=== PATIENT | male | born 1955 | race Caucasian/White ===

== ENCOUNTER 2024-09-07 07:55 | Inpatient (IN) | payer OTHER, SELFPAY ==
[2024-09-05 15:26] VITALS: BP 198/115
[2024-09-05 15:44] LABS: % Basophils 0.7 % (0-2); % Eosinophils 1.3 % (0-6); % Immature Granulocytes 0.3 % (0-0.5); % Monocytes 10.3 % (1.7-9.3); % Neutrophils 71.4 % (42.2-75.2); Absolute Basophils 0.1 10^3/uL (0-0.2); Absolute Eosinophils 0.1 10^3/uL (0-0.7); Absolute Lymphocytes 1.2 10^3/uL (1.2-3.4); Absolute Monocytes 0.8 10^3/uL (0.1-0.6); Absolute Neutrophils 5.4 10^3/uL (1.4-6.5); Hematocrit 46.9 % (39.0-52.0); Hemoglobin 15.7 g/dL (13.0-18.0); Mean Corp Hgb Conc. 33.5 g/dL (33.0-37.0); Mean Corpuscular Hgb 29.1 pg (27.0-31.0); Mean Platelet Volume 9.9 fL (7.4-10.4); Nucleated Red Blood Cells % 0 % (-); Platelet Count 314 10^3/uL (130-400); Red Blood Cell Count 5.39 10^6/uL (4.70-6.10); Red Cell Dist. Width 12.4 % (11.5-14.5); White Blood Cell Count 7.6 10^3/uL (4.8-10.8)
[2024-09-05 16:00] LABS: ALT (SGPT) 28 U/L (0-50); AST (SGOT) 25 U/L (17-59); Albumin 4.4 g/dl (3.5-5.0); Alkaline Phosphatase 77 U/L (38-126); Blood Urea Nitrogen 18 mg/dl (9-20); Calcium 9.4 mg/dl (8.4-10.2); Carbon Dioxide 24 mmol/L (22-30); Chloride 103 mmol/L (98-107); Glucose 309 mg/dl (70-99); Potassium 3.8 mmol/L (3.5-5.1); Sodium 140 mmol/L (135-145); Total Bilirubin 0.6 mg/dl (0.2-1.3); Total Protein 7.3 g/dl (6.3-8.2); eGFR > 60.00
[2024-09-05 16:12] LABS: Troponin I < 0.012 ng/ml
--- NOTE | 2024-09-05 17:57 | ED.GENMED ---
History of Present Illness
General
Chief Complaint: Chest Pain
Source: patient
Exam Limitations: none
Time Seen by Provider: 09/05/24 17:56
History of Present Illness
History of Present Illness:
69-year-old male intermittent episodes of upper chest pain. At times exertional. Worsening chest pain this afternoon. 2 episodes last week briefly. Noncompliant with medications.
Past History
Past History
ED Past Medical History: CAD, HTN, Hypercholesterolemia and Other (Has not been to a physician in 12 years. Unsure of his medical history. States he probably has a history of hypertension but is not treated or checked)
ED Past Surgical History: Appendectomy, Cardiac, Cholecystectomy and Orthopedic
Review of Systems
Review of Systems
All Other Systems: Not applicable
Constitutional: Denies fever
Respiratory: Reports no symptoms
Phy Exam
Physical Exam
Physical Exam:
GENERAL: Alert and oriented in no apparent distress
EYE: Orbits normal.
NECK: Supple, no significant adenopathy.
ENT: Pharynx without erythema
CARDIAC: Regular rate and rhythm without any obvious murmurs.
LUNGS: Clear breath sounds,normal
ABDOMEN: Soft, without focal tenderness or distention
NEUROLOGICAL: Alert and oriented , grossly non-focal
SKIN: Warm and dry, no rash or lesion, no discoloration, skin intact.
MUSCULOSKELETAL: No edema,no deformity.Good color
PSYCH: Normal and appropriate interaction.
Scores
Heart Score for Chest Pain Patients
STEMI patient?: No
History: Moderately Suspicious
ECG: Normal
Age: >/= 65 years
Risk Factors: 1 or 2 Risk Factors
Troponin: </= Normal Limit
Heart Score for Chest Pain Patients: 4
Heart Score Risk: 20.3% MACE over next 6 weeks
Course
Orders/Labs/Results
Orders:
Orders
09/05/24 Breakfast
2000 calorie (17 carb) Diabetic
At Your Request: Full Participation
Does patient need a safe tray?: No
Diabetic Diet: Cholesterol Lowering
09/05/24 15:02
Electrocardiogram (*1) Urgent
Reason for Study: Chest Pain
EKG- Treatment ONCE
09/05/24 15:36
Complete Blood Count/With Diff Urgent
Comprehensive Metabolic Panel Urgent
Troponin I Urgent
09/05/24 18:27
Cardiac Monitoring- Treatment ONCE
IV Insert/Care/Rem.- Treatment PRN
09/05/24 18:47
D-Dimer Urgent
PTT Urgent
09/05/24 20:14
Admit/Transfer Patient As Directed
Co-Sign Provider:
Level of Care: Observation services
Assign to:: Telemetry
Physician / Group: damien
Diagnosis: chest pain
Reason for Telemetry: Chest Pain syndromes
Date to Stop Telemetry: 09/07/24
Time to Stop Telemetry: 11:00
09/05/24 20:15
Code Status As Directed
Resuscitation Status: Full Code
PRN Pain Medication Management As Directed
May give lesser potent ordered pain med per pt: Yes
preference::
Protocol:: Medication orders for pain may be administered in a
manner that supports deferring to patient preference
when the pt is:
- Requesting an ordered lesser potent pain medication.
Least to most potent pain medications are defined
as: acetaminophen < NSAID < tramadol < opioids
(morphine, oxycodone, hydromorphone).
- Requesting a lesser dose of the same medication IF
ORDERED.
- Requesting a less intrusive route of administration
if both routes are prescribed by the provider (PO <
IV).
09/05/24 20:27
Insulin Glargine Lantus [Lantus] 10 units Subcutaneous Insulin Syringe [Syringe-Insulin] 0 unit SC ONCE
09/05/24 20:28
Complete Blood Count/No Diff Urgent
Comment: Obtain baseline before beginning heparin infusion if not already collected
Glycohemoglobin (HgbA1c) Routine
Heparin Protocol- PTT Orders As Directed
PTT per Heparin protocol: -Obtain CBC and baseline PTT - if not already collected.
-Obtain PTT 6 hours from start of infusion. Then, every 6 hours until 2 consecutive
PTT's are therapeutic. Then, PTT Daily.
-With each rate change, obtain PTT every 6 hours until 2 consecutive PTT's are
therapeutic. Then, PTT Daily.
Notify MD As Directed
Notify physician if: PTT is greater than or equal to 200.
09/05/24 20:30
Heparin 20767 Units/250 ml 25,000 units in 250 ml IV PER PROTOCOL
Weight to be used for heparin protocol in kilograms (kg):: 120
Protocol:: Cardiac Tx/Acute Coronary
PTT Goal Range to be used:: PTT 73 to 111 seconds
Order type:: Initial
INITIAL Infusion Dose (UNITS/KG/hr) & then follow protocol:: 12 units/kg/hr
Infusion Dose in UNITS/hr & then follow protocol (UNITS/hr):: 1,000
INFUSION RATE in mL/hr & then follow protocol (mL/hr):: 10
PTT less than or equal to 64 seconds:: Increase rate by 200 units/hr (+ 2 mL/hr)
PTT 64.1 to 72.9 seconds:: Increase rate by 100 units/hr (+ 1 mL/hr)
PTT 73 to 111 seconds:: Target Range. No change in rate.
PTT 111.1 to 130.9 seconds:: Decrease rate by 100 units/hr (- 1 mL/hr)
PTT 131 to 199.9 seconds:: HOLD for 1 hr. Then decrease rate by 200 units/hr (- 2 mL/hr)
PTT greater than or equal to 200 seconds:: HOLD for 2 hrs & Notify Provider. Then decrease by 200 units/hr (-
2 mL/hr)
Lab follow-up:: Each change, PTT q6h until 2 consecutive are therapeutic. Then PTT
daily.
09/05/24 20:32
Insulin Aspart [NOVOLOG vial] 4 units SC NOW STA
09/05/24 21:14
Electrocardiogram (*1) Q6H
Reason for Study: Chest Pain
Comment: at admission and Q3H for total of 3, to be done with each troponin
Troponin I Q3H
Comment: at admit & Q3H for 3 total including ED draws, obtain ECG with each level
Atorvastatin [Lipitor] 40 mg PO NOW STA
Dextrose 50%-Water [Dextrose 50% Syringe] 12.5 grams IV [id number] PRN
Glucagon [GlucaGen] 1 mg IM PRN PRN
09/05/24 21:14
CARDIOLOGY CONSULT Routine
Consulting Provider: Donny Macias
Was physician already notified: Yes
Activity As Directed
Activity Level: As Tolerated
Bedside Glucose Monitoring As Directed
Frequency: AC&HS
Additional Instructions:: Change to q6h if pt on TPN, tube feeding or not eating
INT (Intravenous Needle Therapy) As Directed
Comment: maintain peripheral IV access
Intake/ Output As Directed
Frequency: Per unit guidelines
Vital Signs As Directed
Frequency: q4h
Weight As Directed
Frequency: Daily
DX Deep Vein Thrombosis Video Routine
09/06/24 00:14
Troponin I Q3H
Comment: at admit & Q3H for 3 total including ED draws, obtain ECG with each level
09/06/24 03:14
Electrocardiogram (*1) Q6H
Reason for Study: Chest Pain
Comment: at admission and Q3H for total of 3, to be done with each troponin
Troponin I Q3H
Comment: at admit & Q3H for 3 total including ED draws, obtain ECG with each level
09/06/24 06:00
Cardiovascular Evaluation IN AM
Glycohemoglobin (HgbA1c) IN AM
09/06/24 07:30
Insulin Aspart Corrective Mod [Novolog Flexpen-Moderate Resistance] See Protocol SC AC
09/06/24 08:00
Aspirin Chewable [Low Strength Aspirin] 81 mg PO DAILY
09/06/24 09:14
Electrocardiogram (*1) Q6H
Reason for Study: Chest Pain
Comment: at admission and Q3H for total of 3, to be done with each troponin
09/06/24 18:00
Atorvastatin [Lipitor] 40 mg PO QPM
09/06/24 22:00
Insulin Glargine Lantus [Lantus] 10 units Subcutaneous Insulin Syringe [Syringe-Insulin] 0 unit SC HS
09/07/24 06:00
Complete Blood Count/No Diff Q2D
Comment: Notify MD if platelet count is <130,000 or decreases by 50% from baseline
09/07/24 11:00
DC Protocol for Telemetry ONCE
09/09/24 06:00
Complete Blood Count/No Diff Q2D
Comment: Notify MD if platelet count is <130,000 or decreases by 50% from baseline
09/11/24 06:00
Complete Blood Count/No Diff Q2D
Comment: Notify MD if platelet count is <130,000 or decreases by 50% from baseline
09/13/24 06:00
Complete Blood Count/No Diff Q2D
Comment: Notify MD if platelet count is <130,000 or decreases by 50% from baseline
09/15/24 06:00
Complete Blood Count/No Diff Q2D
Comment: Notify MD if platelet count is <130,000 or decreases by 50% from baseline
09/17/24 06:00
Complete Blood Count/No Diff Q2D
Comment: Notify MD if platelet count is <130,000 or decreases by 50% from baseline
09/19/24 06:00
Complete Blood Count/No Diff Q2D
Comment: Notify MD if platelet count is <130,000 or decreases by 50% from baseline
09/21/24 06:00
Complete Blood Count/No Diff Q2D
Comment: Notify MD if platelet count is <130,000 or decreases by 50% from baseline
Abnormal Lab Results
09/05/24
15:36
Absolute Monos (auto) 0.8 H 10^3/uL
(0.1-0.6)
Lymphocytes % 16.0 L %
(20.5-51.1)
Monocytes % 10.3 H %
(1.7-9.3)
Glucose 309 H mg/dl
(70-99)
09/05/24 15:36
Vital Signs
Initial and Last Documented VS:
Initial Vital Signs
Temp Pulse Resp BP Pulse Ox
98.5 F 99 18 198/115 98
09/05/24 15:26 09/05/24 15:26 09/05/24 15:26 09/05/24 15:26 09/05/24 15:26
Last Documented Vital Signs
Temp Pulse Resp BP Pulse Ox
98.5 F 80 20 151/83 94
09/05/24 15:26 09/05/24 20:00 09/05/24 20:00 09/05/24 20:00 09/05/24 20:00
MDM/Problems Addressed
Differential Diagnosis Includes:
Patient with intermittent chest pain at times exertional with nonspecific but new EKG changes. Warrants inpatient workup. Would also consider pulmonary emboli with mild tachycardia. Low suspicion clinically. Check D-dimer
*Pulse Oximetry
Patient hypoxic: no
*EKG
Interpreted by ED Provider?: Yes
Interpretation: abnormal
Comparison EKG: changes noted
Heart Rate: 108
Rate: tachycardiac
Rhythm: sinus
[place]: normal axis
Interval: normal interval
QRS Pattern: normal QRS
Ischemia: non-specific ST changes
*Critical Care Note
Total Time (30-74mins, 75-104mins- exclusive of procedures): Not Applicable
Data Reviewed
Review of Other/Old Records Reveals: Labs, Records and Testing
Update Note
Update Note:
69-year-old male with intermittent chest pain over the last 1-1/2 weeks. Today's episode after lunch was significantly worse. History of stent. Some exertional component at times
ED Attending Note
-
Portions of this chart may have been created with voice recognition software.� Occasional wrong word or��sound alike� substitutions may have occurred due to the inherent limitations of voice recognition software.
Discharge Plan
Departure
Patient Disposition: Admit
Date of Disposition: 09/05/24
Time of Disposition: 19:44
Presentation/result/management discussed w/ accepting MD/DO: Hospitalist
Discharge Problem:
Recurring chest pain, History of cardiac stent
Interventions
Interventions:
*Risk Screen - Suicide Last Done: 09/05/24 15:26
*General Assessment Last Done: 09/05/24 15:26
*Neglect/Abuse Screening Last Done: 09/05/24 15:26
*Nursing Disposition Last Done: 09/05/24 21:10
ED- Cardiac Assessment Last Done: 09/05/24 18:33
Discharge Date and Time
Discharge Date/Time: 09/05/24 21:10
[2024-09-05 18:27] VITALS: BMI 36.9
[2024-09-05 18:46] VITALS: BP 196/98
[2024-09-05 19:00] VITALS: BP 166/87
[2024-09-05 19:13] LABS: D-Dimer 0.29 ug/mlFEU (0.00-0.50)
--- NOTE | 2024-09-05 19:59 | HPS.HSE ---
Addendum entered and electronically signed by Patrick Del Toro DO 09/05/24 21:16:
Patient seen and examined independently. Agree with findings and plan as set forth by IGNACIO Oscar.
Patient is a 69y M with PMH significant for DM-II, hypertension and ASCVD s/p coronary stent in 2022 who presents to ED complaining of chest pain. Patient reports recent history of intermittent chest discomfort which typically occurs with
exertion and improves with rest. This evening, he developed chest discomfort shortly after dinner - while he was not exerting himself. He denies any associated nause, diaphoresis, dyspnea, etc. Patient admits that he has been non-compliant with
prescribed medications following his prior admission and coronary stent in 2022. He takes only ASA 81mg daily at present.
In the ED, patient is resting comfortably and is pain-free at this time.
His initial troponin is undetectable (as it was during his prior presentation); however, his EKG shows ST depressions in the later leads - again - similar to his prior presentation.
Ass:
Chest Pain / ACS
ASCVD
Benign Hypertension
DM-II, Uncontrolled
Medication Non-Compliance
Plan:
Observe overnight for further evaluation and treatment.
Continue ASA daily. Add IV heparin for now given risk factors / story.
Follow troponin to peak.
Follow for any new / recurrent chest pain.
Cardiology evaluation for additional recommendations / possible ischemic evaluation.
Restart statin, beta-blockade, etc.
Follow glucose and cover with SSI as needed. Start low dose basal insulin and titrate as needed.
Update A1C.
Original Note:
Family Physician
-
Family Physician: * NONE
Chief Complaint
-
left sided chest pain
History of Present Illness
69-year-old male with PMH for HTN, HLD, CAD, cardiac stents, type 2 Dm intermittent episodes of left sided chest pain multiples times last week. patient stated pain non radiating but exertional. pain resolved with rest. today pain was severe which
prompted him to come to the ER. patient is non compliance with medication. denied ESCOBAR, dizzy or syncope. denied fever, chills, sob. denied abdominal pain, n,v,d. denied dysuria or hematuria. he has chronic left LE edema since Tib/fib fracture.
trop negative. admitting for further management.
Medical History
Past Medical History
Past Medical History: Reports Other
Additional Past Medical History:
type 2 DM
HTN
CAD
HLD
Past Surgical History: Reports Other
Additional Past Surgical History:
cholecystectomy
appendectomy
left LE surgery
cardiac stents
Social History
Tobacco: Non-smoker
Alcohol: None
Drug: None
Personal: Single
Living: With Roomate
Family History
Family History: Not pertinent
Allergies / Home Medications
Allergies reflects when Allergies were last updated in [employer].
Home Medications with original date entered in [employer]
Allergy/Medication List:
Allergies
Allergy/AdvReac Type Severity Reaction Status Date / Time
No Known Allergies Allergy Verified 09/05/24 15:25
Home Medications
aspirin 81 mg chewable tablet 81 mg PO DAILY #0 tabs 02/20/23
atorvastatin 40 mg tablet 40 mg PO QPM #30 tabs 02/20/23
blood sugar diagnostic (Blood Glucose Test strips) #100 ea 02/20/23
blood-glucose meter (Blood Glucose Monitoring kit) #1 ea 02/20/23
empagliflozin 10 mg tablet (Jardiance) 10 mg PO DAILY #30 tabs 02/20/23
lancets (Lancets,Ultra Thin) #100 ea 02/20/23
metformin 500 mg tablet 500 mg PO BID@0800,1700 #60 tabs 02/20/23
metoprolol tartrate 25 mg tablet 25 mg PO BID #60 tabs 02/20/23
ticagrelor 90 mg tablet (Brilinta) 90 mg PO BID #60 tabs 02/20/23
Review of Systems
-
Constitutional: Reports No Symptoms
EENT: Reports No Symptoms
Respiratory: Reports No Symptoms
Cardiac: Reports Chest Pain
Abdomen/GI: Reports No Symptoms
: Reports No Symptoms
Musculoskeletal: Reports No Symptoms
Skin: Reports No Symptoms
Neurological: Reports No Symptoms
Endocrine: Reports No Symptoms
Hematologic/Lymphatic: Reports No Symptoms
Psych: Reports No Symptoms
Physical Exam
Vital Signs
Vital Signs
Temp Pulse Resp BP Pulse Ox
98.5 F 89 19 196/98 98
09/05/24 15:26 09/05/24 18:42 09/05/24 18:42 09/05/24 18:46 09/05/24 18:15
Physical Exam
General: Well Developed, Well Nourished and No Apparent Distress
HEENT: NormoCephalic, Moist mucous membranes and Atraumatic
Respiratory: Clear
Cardiac: S1/S2 and Regular Rhythm; No Murmur or Rub
GI: Soft, Non Tender, Non Distended and Normal Bowel Sounds; No Organomegaly
Rectal: Deferred by Provider
Musculoskeletal: No Clubbing, No Cyanosis and Other (left LE)
Skin: No Rash
Neuro: AO x 3 and Nonfocal/grossly intact
Psych: Calm
Laboratory Results
-
09/05/24 15:36
09/05/24 15:36
Laboratory Results
Total Bilirubin 0.6 mg/dl (0.2-1.3) 09/05/24 15:36
AST 25 U/L (17-59) 09/05/24 15:36
ALT 28 U/L (0-50) 09/05/24 15:36
Alkaline Phosphatase 77 U/L (38-126) 09/05/24 15:36
Troponin I < 0.012 ng/ml 09/05/24 15:36
Data Reviewed
-
Lab Data: Labs Reviewed by me
Impression/Plan
-
#chest pain r/o acute ACS
#hxt of cardiac stents
-trop 0.012
-continue to trend trop
-EKG With sinus tachy with ST and T wave abnormality
-asa continued
-statin
-initiated on heparin drip
-trend trop
-cardiology consulted
#type 2 DM with hyperglycemia
-blood sugar in 309
-sliding scale
-CHO diet
-Lantus 10units at hs
-4 units of aspart now
Essential hypertension
-hypertensive on arrival
-metoprolol added
#Hyperlipidemia
-statin continued
#DVT prophylaxis
-heparin drip
#CODE status
-full code
[2024-09-05 20:00] VITALS: BP 151/83
[2024-09-05 21:09] LABS: APTT 23.9 Sec (23.4-35.0)
[2024-09-05 21:38] VITALS: BMI 36.2
[2024-09-05] MEDS: HEPARIN 25000 UNITS/250 ML IV (23:49)
[2024-09-06] VITALS (7 sets, daily range): BP systolic 111–177; BP diastolic 72–101; BMI 35.7
--- NOTE | 2024-09-06 01:00 | PTCARENOTE ---
Pt arrived to unit ~ 2130, ambulated independently from stretcher to bed. AAOx3, no complaints of pain at this time. Unable to complete vitals or begin heparin gtt until 0100 d/t floors being cleaned and nursing staff being unable to reach
patient's room d/t floors being waxed. Pt oriented to room, call meyers within reach.
[2024-09-06 01:42] LABS: Glucose - Point of Care 178 mg/dl (70-99)
[2024-09-06] MEDS: LANTUS 0.1 UNITS SC ×2 (01:42→21:49)
[2024-09-06] MEDS: LIPITOR 40 MG PO ×2 (01:42→17:47)
[2024-09-06] MEDS: LOPRESSOR 25 MG PO ×3 (01:43→20:59)
[2024-09-06 01:46] LABS: Troponin I 0.638 ng/ml
--- NOTE | 2024-09-06 02:00 | PTCARENOTE ---
Troponin level increased from < 0.012 to 0.638. Asymptomatic, remains NSR on telemetry. EKG completed showing sinus rhythm with occasional PVCs, nonspecific ST and T wave abnormalities. MT Kerr notified, no new orders. Will pass along to
dayshift RN to notify cardiology of increased troponin level.
--- NOTE | 2024-09-06 04:30 | PTCARENOTE ---
Pt's repeat troponin increased from 0.638 to 1.020, asymptomatic. EKG reading NSR. UPHOLSTERY TECH made aware, no new orders. Next troponin due at 0600.
[2024-09-06 06:13] LABS: Hematocrit 44.5 % (39.0-52.0); Hemoglobin 14.8 g/dL (13.0-18.0); Mean Corp Hgb Conc. 33.3 g/dL (33.0-37.0); Mean Corpuscular Hgb 29.1 pg (27.0-31.0); Mean Corpuscular Volume 87.4 fL (80.0-94.0); Mean Platelet Volume 9.9 fL (7.4-10.4); Platelet Count 304 10^3/uL (130-400); Red Blood Cell Count 5.09 10^6/uL (4.70-6.10); Red Cell Dist. Width 12.4 % (11.5-14.5); White Blood Cell Count 7.4 10^3/uL (4.8-10.8)
[2024-09-06 06:18] LABS: APTT 32.4 Sec (23.4-35.0)
[2024-09-06 06:30] LABS: HDL Cholesterol 31 mg/dl; LDL Cholesterol, Calculated 88 mg/dl; Total Cholesterol 156 mg/dl (50-199); Triglyceride 186 mg/dl (10-149); Very Low Density Lipoprotein 37 mg/dl (0-30)
--- NOTE | 2024-09-06 07:04 | CON.CAR ---
Consultation
Consultation Request
Date/Time Consultation Requested: September 06, 2024
Date/Time Consultation Performed: September 06, 2024
Requesting Provider: [facility] Wallace
Performing Provider: Colleen
Reason for Consultation: Acute coronary syndrome
Medical History
-
Chief Complaint: Acute coronary syndrome
History of Present Illness:
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 He presents with left-sided exertional chest pressure better with rest rating to
his left shoulder which has been coming on for about a week and has been escalating. He had a 1 out of 10 chest pain when he had the ER with a troponin of less than 0.12 initially but then a peak of 1.02. Seen at the bedside he is currently
pain-free on heparin and aspirin. He carries a history of medical noncompliance as well as hypertension mixed hyperlipidemia and type 2 diabetes. He also has a history of hypertensive emergency in the past.
Past Medical History
Past Medical History: CAD and HTN
Social History
Tobacco: Former Smoker
Alcohol: Occasional
Drug: None
Personal: Other
Living: With Family
Employment: Employed
Family History
Family History: Reviewed & Not Pertinent
Allergies / Home Medications
Allergy/AdvReac Type Severity Reaction Status Date / Time
No Known Allergies Allergy Verified 09/05/24 15:25
�Medication �Instructions �Recorded �Confirmed �Type
aspirin 81 mg chewable tablet 81 mg PO DAILY #0 tabs 02/20/23 09/05/24 Rx
Review of Systems
-
All other systems: Negative unless noted
Respiratory: Trouble Breathing
Cardiac: Chest Pain
Physical Exam
Vital Signs
Temp Pulse Resp BP Pulse Ox
98.1 F 79 16 158/84 96
09/06/24 01:35 09/06/24 01:43 09/06/24 01:35 09/06/24 01:43 09/06/24 01:35
Lab Results
09/06/24 05:58
09/05/24 15:36
Troponin I 1.020 ng/ml H* D 09/06/24 03:35
Physical Exam
General: Well Developed and Well Nourished
HEENT: Normocephalic
Respiratory: Clear
Cardiac: S1/S2, Regular Rhythm and Murmur (No murmur)
Breast: Deferred by me
GI: Soft, Non Tender, Non Distended and Normal Bowel Sounds
Rectal: Deferred by Provider
Genito-urinary: No Costovertebral Tender
Musculoskeletal: No Clubbing, No Cyanosis and No Edema
Skin: Warm and Dry
Neuro: Awake, Alert and Oriented
Hematologic/Lymphatic: No Lymphadenopathy
Psych: Calm
Impression / Plan
-
Impression:
Chest Pain / ACS
History of OM1 stent 2022
ASCVD
Benign Hypertension
DM-II, Uncontrolled
Medication Non-Compliance
Recommend:
Agree with aspirin and IV heparin through the weekend.
Will plan left heart catheterization on Sunday, September [address] Valdez and keep n.p.o. after midnight
His character of angina is different from prior so it is possible he may have multivessel disease and will give aspirin only plus heparin
If he has further chest pain or pressure can add IV nitroglycerin will perform left heart catheterization sooner
Cardiovascular panel
Statin
Diabetes management as you are
Would be reasonable to give him beta-shira therapy for improved cardiac energetic's
Further testing pending catheterization on Sunday
Described left heart catheterization in detail including 1000 risk of and a 1% risk of vascular cardiac injury and the patient is amenable for procedure on Sunday
Maintain telemetry
Once troponin is trending down you can stop checking
We will follow with you
Data Reviewed
-
EKG: Tracing Personally Visualized and interpreted
Radiology: Report Reviewed by me
Labs: Labs Reviewed by me
Old Records: Reviewed
--- NOTE | 2024-09-06 07:13 | W.PN.HOSP.TC ---
Today's Communication/Plan
-
see a/p
Assessment / Plan
Assessment / Plan
Physical Exam
General: Obese, no acute distress, appears comfortable at this time
HEENT: NormoCephalic, Moist mucous membranes and Atraumatic
Respiratory: Clear
Cardiac: S1/S2 and Regular Rhythm; No Murmur or Rub
GI: Soft, Non Tender, Non Distended and Normal Bowel Sounds; No Organomegaly
Musculoskeletal: No Clubbing, No Cyanosis, No edema
Skin: No Rash
Neuro: AO x 3 conversant coherent
Psych: Calm
69M DM HTN HLD CAD stent 2022 here with chest pain troponin elevation concerning for ACS.
#chest pain r/o acute ACS
#hxt of cardiac stents
-trop 0.012
-continue to trend trop
-EKG With sinus tachy with ST and T wave abnormality
-asa continued
-statin
-hep gtt
-trend trop
-cardiology consult appreciated anticipate Cath Sunday
#type 2 DM with hyperglycemia
-A1c 10.4
-sliding scale
-CHO diet
-Lantus 10units at hs
-medium dose sliding scale
-monitor and titrate insulin regimen as necessary
Essential hypertension
-hypertensive on arrival
-metoprolol added, cont
#Hyperlipidemia
-statin continued
#DVT prophylaxis
-heparin drip
#CODE status
-full code
I spent a total of 50 minutes with the patient or on the floor. More than 50% of this time involved counseling and coordination of care.
Anticipated Discharge: > 48 hours
Subjective/Interval History
-
Date of Service: September 06, 2024
No acute distress, resting comfortably in bed. Reports feeling well. Denies current chest pain
Objective Data
-
Labs:
Laboratory Results
09/05/24 09/05/24 09/06/24
18:47 20:28 05:58
WBC 7.4
Hgb 14.8
Hct 44.5
Plt Count 304
APTT 23.9 Cancelled 32.4
09/06/24
13:00
WBC
Hgb
Hct
Plt Count
APTT Pending
Vital Signs:
Vital Signs
Temp Pulse Resp BP Pulse Ox
98.1 F 79 16 158/84 96
09/06/24 01:35 09/06/24 01:43 09/06/24 01:35 09/06/24 01:43 09/06/24 01:35
[2024-09-06] MEDS: NOVOLOG FLEXPEN-MODERATE RESISTANCE 1 UNITS SC ×2 (10:07→13:43)
[2024-09-06] MEDS: LOW STRENGTH ASPIRIN 81 MG PO (10:11)
[2024-09-06 10:35] LABS: Glycohemoglobin (HgbA1c) 10.4 % (4.0-5.6)
[2024-09-06 13:38] LABS: APTT 35.8 Sec (23.4-35.0)
--- NOTE | 2024-09-06 15:54 | CM ---
marketing support manager reviewed patient's chart and met with patient and patient lives with a friend in a one story home with 2 steps to enter, patient is independent with adl's and ambulation, no dme, patient does not have a PCP and case loader operator offered
patient information on Residency clinic but patient declined.
PCP: None
Pharmacy: [facility] in [place]
Plan; Home no needs when stable.
[2024-09-06 17:26] LABS: Glucose - Point of Care 204 mg/dl (70-99)
[2024-09-06] MEDS: NOVOLOG FLEXPEN-MODERATE RESISTANCE 3 UNITS SC (17:47)
[2024-09-06] MEDS: HEPARIN 25000 UNITS/250 ML IV (19:52)
[2024-09-06 20:54] LABS: APTT 29.4 Sec (23.4-35.0)
[2024-09-06 21:22] LABS: Glucose - Point of Care 158 mg/dl (70-99)
[2024-09-07 04:03] LABS: APTT 63.3 Sec (23.4-35.0)
[2024-09-07 04:07] VITALS: BP 142/85
[2024-09-07 06:00] VITALS: BMI 35.5
[2024-09-07 07:30] VITALS: BP 191/104
[2024-09-07 07:32] LABS: Glucose - Point of Care 186 mg/dl (70-99)
--- NOTE | 2024-09-07 07:54 | W.PN.HOSP.TC ---
Today's Communication/Plan
-
Blood pressure control
Npo after midnight for Cath
cont asa hep gtt
glycemic control
Assessment / Plan
Assessment / Plan
Physical Exam
General: Obese, no acute distress, appears comfortable at this time
HEENT: NormoCephalic, Moist mucous membranes and Atraumatic
Respiratory: Clear
Cardiac: S1/S2 and Regular Rhythm; No Murmur or Rub
GI: Soft, Non Tender, Non Distended and Normal Bowel Sounds; No Organomegaly
Musculoskeletal: No Clubbing, No Cyanosis, No edema
Skin: No Rash
Neuro: AO x 3 conversant coherent
Psych: Calm
69M DM HTN HLD CAD stent 2022, hasn't followed with primary care in a while, here with chest pain troponin elevation concerning for ACS.
#chest pain/ACS/NSTEMI
#hxt of cardiac stents
-trop trended to Peak 1.540
-EKG sinus tachy with ST and T wave abnormality
-asa continued
-statin
-hep gtt
-cardiology consult appreciated anticipate Cath Sunday, npo after midnight
Essential hypertension
-hypertensive on arrival
-BP regimen adjusted as per Cardio
-initial treated with metoprolol, since switched to Coreg
-Amlodipine started, cont
#type 2 DM with hyperglycemia
-A1c 10.4
-sliding scale
-CHO diet
-Lantus 10units at hs
-medium dose sliding scale
-monitor and titrate insulin regimen as necessary
#Hyperlipidemia
-statin continued
#DVT prophylaxis
-heparin drip
#CODE status
-full code
I spent a total of 50 minutes with the patient or on the floor. More than 50% of this time involved counseling and coordination of care.
Anticipated Discharge: 24 - 48 hours
Subjective/Interval History
-
Date of Service: September 07, 2024
No acute distress, sitting up comfortably in bed. Denies new acute issues at this time. Chest pain free.
Objective Data
-
Labs:
Laboratory Results
09/06/24 09/07/24 09/07/24
20:30 03:40 06:00
WBC Pending
Hgb Pending
Hct Pending
Plt Count Pending
APTT 29.4 63.3 H
Sodium Pending
Potassium Pending
Chloride Pending
Carbon Dioxide Pending
BUN Pending
Creatinine Pending
Glucose Pending
Calcium Pending
09/07/24
10:15
WBC
Hgb
Hct
Plt Count
APTT Pending
Sodium
Potassium
Chloride
Carbon Dioxide
BUN
Creatinine
Glucose
Calcium
Vital Signs:
Vital Signs
Temp Pulse Resp BP Pulse Ox
98.0 F 70 20 142/85 96
09/07/24 04:07 09/07/24 04:07 09/07/24 04:07 09/07/24 04:07 09/07/24 04:07
I&O
09/06/24 09/07/24 09/08/24
06:59 06:59 06:59
Intake Total 2571 / 257
Balance 2571 / 257
[2024-09-07] MEDS: NOVOLOG FLEXPEN-MODERATE RESISTANCE 1 UNITS SC ×2 (09:23→17:07)
[2024-09-07] MEDS: LOPRESSOR 25 MG PO (09:25)
[2024-09-07] MEDS: LOW STRENGTH ASPIRIN 81 MG PO (09:26)
[2024-09-07 10:32] LABS: Hemoglobin 15.5 g/dL (13.0-18.0); Mean Corp Hgb Conc. 33.7 g/dL (33.0-37.0); Mean Corpuscular Hgb 29.6 pg (27.0-31.0); Platelet Count 300 10^3/uL (130-400); Red Blood Cell Count 5.23 10^6/uL (4.70-6.10); Red Cell Dist. Width 12.3 % (11.5-14.5); White Blood Cell Count 6.7 10^3/uL (4.8-10.8)
[2024-09-07 10:38] LABS: APTT 81.6 Sec (23.4-35.0)
[2024-09-07 10:45] LABS: Troponin I 0.653 ng/ml
[2024-09-07 11:00] VITALS: BP 155/88
[2024-09-07 11:01] LABS: Blood Urea Nitrogen 12 mg/dl (9-20); Calcium 9.3 mg/dl (8.4-10.2); Carbon Dioxide 25 mmol/L (22-30); Chloride 104 mmol/L (98-107); Estimated Creatinine Clearance 113 ml/min; Glucose 186 mg/dl (70-99); Phosphorus 3.4 mg/dl (2.5-4.5); Potassium 4.3 mmol/L (3.5-5.1); Sodium 138 mmol/L (135-145); eGFR > 60.00
[2024-09-07 11:46] LABS: Glucose - Point of Care 244 mg/dl (70-99)
[2024-09-07] MEDS: NOVOLOG FLEXPEN-MODERATE RESISTANCE 3 UNITS SC (11:55)
[2024-09-07] MEDS: HEPARIN 25000 UNITS/250 ML IV (11:56)
--- NOTE | 2024-09-07 12:32 | W.PN.CARDCBS ---
Today's Communication / Plan
-
Plan for coronary angiography tomorrow
Continue IV heparin
Strive towards better blood pressure control
Will change Metoprolol tartrate 25 mg twice daily to Coreg 6.25 mg BID which should assist with better BP control
Will add Norvasc 2.5 mg daily
Will add Ntg Paste 1' TID
Reassess best strategy for blood pressure control once we have results of coronary angiography and echocardiogram
Impression / Plan
-
Impression:
Chest Pain / ACS
History of OM1 stent 2022
ASCVD
Benign Hypertension
DM-II, Uncontrolled
Medication Non-Compliance
Recommend:
Non-ST segment elevation myocardial infarction with troponin peak of 1.54 now declining and no further chest pain
aspirin and IV heparin through the weekend.
Left heart catheterization on Sunday, September [address] Valdez and keep n.p.o. after midnight
Atorvastatin 40 mg daily
Will change Metoprolol tartrate 25 mg twice daily to Coreg 6.25 mg BID which should assist with better BP control
Will add Norvasc 2.5 mg daily
Will add Ntg Paste 1' TID
Further testing pending catheterization on Sunday
Diabetes management as per primary service
Importantly, he tells me that he has not followed with a primary care physician for quite some time.
We had a long discussion that medical compliance/follow-up will be critically important for his health going forward.
There needs to be a focus on risk factor modification to include more aggressive management of diabetes mellitus. We discussed that weight loss and routine aerobic exercise is also an important component of risk factor modification and this will be
addressed in more detail during this hospital stay. He likely will benefit greatly from cardiac rehab.
Total time spent today was 54 minutes in preparing to see the patient, seeing the patient and coordination of care. This included review of recent laboratory evaluations, cardiact testing, imaging studies, primary care rtecords, specialty
consultations, hospital records, as well as personally interviewing and examining the patient, which included discussion of their tests, review/ordering medications, and communicating with other healthcare professionals and also treatment planning
as well as counseling.
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
Subjective
Date of Service: September 07, 2024
He tells me that he is feeling much better. He has had some intermittent low-level chest discomfort but has been pain-free for most of the day today, currently pain-free
Objective
Labs:
09/07/24 10:10
09/07/24 10:10
Labs
Hgb 15.5 g/dL (13.0-18.0) 09/07/24 10:10
Hct 46.0 % (39.0-52.0) 09/07/24 10:10
Plt Count 300 10^3/uL (130-400) 09/07/24 10:10
APTT 81.6 Sec (23.4-35.0) H 09/07/24 10:10
Sodium 138 mmol/L (135-145) 09/07/24 10:10
Potassium 4.3 mmol/L (3.5-5.1) 09/07/24 10:10
BUN 12 mg/dl (9-20) 09/07/24 10:10
Creatinine 0.8 mg/dL (0.7-1.3) 09/07/24 10:10
Glucose 186 mg/dl (70-99) H 09/07/24 10:10
Troponins
09/05/24 09/05/24 09/06/24
15:36 21:14 00:43
Troponin I < 0.012 Cancelled 0.638 H*
09/06/24 09/06/24 09/06/24
03:35 05:58 13:15
Troponin I 1.020 H* D 1.380 H* D 1.540 H*
09/07/24
10:10
Troponin I 0.653 H*
Vital Signs and I&O:
Vital Signs
Temp Pulse Resp BP Pulse Ox
97.7 F 70 18 191/104 95
09/07/24 07:30 09/07/24 07:30 09/07/24 07:30 09/07/24 07:30 09/07/24 07:30
Vital Signs
Temp Pulse Resp BP Pulse Ox
97.7 F 70 18 191/104 95
09/07/24 07:30 09/07/24 07:30 09/07/24 07:30 09/07/24 07:30 09/07/24 07:30
Intake & Output
09/05/24 09/06/24 09/07/24 09/08/24
06:59 06:59 06:59 06:59
Intake Total 2571 / 2571
Balance 2571 / 2571
Physical Exam
Physical Exam
Well-appearing, resting in bed no acute distress
Regular rate and rhythm normal S1 and S2, no S3 no S4 is grade 1/6 apical systolic murmur no rubs
Lungs clear to auscultation bilaterally without wheezes rales or rhonchi
Abdomen obese soft nontender nondistended normoactive bowel sounds
Extremities no clubbing cyanosis or edema
[2024-09-07 12:42] VITALS: BP 155/88
[2024-09-07 15:00] VITALS: BP 178/105
--- NOTE | 2024-09-07 16:29 | PTCARENOTE ---
BP 178/105- , hospitalist notified. No c/o chest pain , or any other symptoms.
[2024-09-07 17:04] LABS: Glucose - Point of Care 186 mg/dl (70-99)
[2024-09-07] MEDS: NORVASC 2.5 MG PO (17:07)
[2024-09-07] MEDS: COREG 6.25 MG PO ×2 (17:07→21:05)
[2024-09-07] MEDS: LIPITOR 40 MG PO (17:09)
[2024-09-07 18:19] LABS: INR 0.99; PT 13.4 Sec (11.4-14.6)
[2024-09-07 18:20] LABS: APTT 64.4 Sec (23.4-35.0)
[2024-09-07 19:55] VITALS: BP 147/86
[2024-09-07 21:41] LABS: Glucose - Point of Care 181 mg/dl (70-99)
[2024-09-07] MEDS: LANTUS 0.1 UNITS SC (21:46)
[2024-09-08] VITALS (15 sets, daily range): BP systolic 129–159; BP diastolic 73–97; BMI 35.5
[2024-09-08] MEDS: HEPARIN 25000 UNITS/250 ML IV (00:36)
[2024-09-08 01:48] LABS: APTT 99.2 Sec (23.4-35.0)
[2024-09-08 06:08] LABS: Glucose - Point of Care 166 mg/dl (70-99)
[2024-09-08] MEDS: NOVOLOG FLEXPEN-MODERATE RESISTANCE 1 UNITS SC (06:15)
[2024-09-08] MEDS: LOW STRENGTH ASPIRIN 81 MG PO (08:13)
[2024-09-08] MEDS: NORVASC 2.5 MG PO (08:13)
[2024-09-08] MEDS: COREG 6.25 MG PO ×2 (08:13→19:46)
[2024-09-08 08:38] LABS: Hematocrit 45.7 % (39.0-52.0); Hemoglobin 15.4 g/dL (13.0-18.0); Mean Corp Hgb Conc. 33.7 g/dL (33.0-37.0); Mean Corpuscular Hgb 29.4 pg (27.0-31.0); Mean Corpuscular Volume 87.2 fL (80.0-94.0); Mean Platelet Volume 9.9 fL (7.4-10.4); Platelet Count 290 10^3/uL (130-400); Red Blood Cell Count 5.24 10^6/uL (4.70-6.10); Red Cell Dist. Width 12.3 % (11.5-14.5); White Blood Cell Count 6.7 10^3/uL (4.8-10.8)
[2024-09-08 08:54] LABS: APTT 86.8 Sec (23.4-35.0)
[2024-09-08 09:24] LABS: Blood Urea Nitrogen 12 mg/dl (9-20); Calcium 9.2 mg/dl (8.4-10.2); Carbon Dioxide 24 mmol/L (22-30); Chloride 104 mmol/L (98-107); Estimated Creatinine Clearance 100 ml/min; Glucose 195 mg/dl (70-99); Phosphorus 3.9 mg/dl (2.5-4.5); Potassium 4.2 mmol/L (3.5-5.1); Sodium 138 mmol/L (135-145); eGFR > 60.00
[2024-09-08 10:15] LABS: ACT-LR - POC 295 Seconds (116-155)
--- NOTE | 2024-09-08 11:01 | ITS.CL.CATH ---
Facility Maintenance Manager - Catheterization
Cardiac Catheterization
Procedure Report:
LEFT HEART CATH AND CORONARY INTERVENTION
Date of Procedure: September 08, 2024
Referring: Dr. Donny Macias
PROCEDURES:
1. Left heart catheterization with coronary and single-plane left ventriculography
2. Hemodynamic assessment of the mid LAD using a Ganado Omni wire. The iFR in the mid LAD serially measured above the ischemic threshold and 0.92, 0.93, 0.93
3. Successful stenting of the mid to distal circumflex into the mid PDA with placement of overlapping 3.0 x 30 mm, 2.25 x 22 mm and 2.25 x 38 mm [place] stents that were implanted and postdilated distally with a 2.25 x 20 mm Euphora balloon at 12 hector
on the distal edge of the stents and 24 hector throughout the PDA back into the distal circumflex. The distal circumflex stent was postdilated with a 3.0 mm noncompliant balloon after IVUS. The most proximal portion of the stents were postdilated
with a 3.5 mm noncompliant balloon to 25 hector.
4. Intravascular ultrasound
INDICATION: This is a 69-year-old gentleman with a prior history of coronary artery disease and stenting of the proximal obtuse marginal branch in February 2023. He presented with recurring anginal symptoms. He was last seen by Dr. Sage in our
office in 2019. He has been marginally compliant with medications at time and his diabetes is under poor control with a hemoglobin A1c above 10%. He now presents for evaluation of substernal chest pressure and ruled in for non-ST segment elevation
myocardial infarction. He is referred for coronary angiography
ACCESS: Right common femoral artery, 6 [place] sheath using ultrasound guidance and micropuncture. The right radial artery has a draumatic loop in the forearm. The vascular loop could not be traversed with a baby J hydrophilic wire.
HEMODYNAMICS (mmHg):
AO (s/d, m) : 116/71, 90
LV (s/d) : 124/14
LVEDP : 27
CORONARY FINDINGS
Dominance: Right
LEFT MAIN: Normal
LEFT ANTERIOR DESCENDING: The LAD arises normally from the left main and has a 30% proximal stenosis and 50% stenosis in the mid LAD beyond the only sizable diagonal branch. The remainder of the vessel has only minor irregularities.
CIRCUMFLEX: The circumflex is a very large caliber dominant vessel. There is a stent in the proximal OM1 which remains widely patent. OM1 bifurcates into a larger and smaller daughter branch beyond the stented segment. Both daughter branches are
patent. The circumflex continues in the AV groove as a large-caliber vessel and is noted to have a 95% hazy stenosis involving the origin of a small distal RV marginal branch. The PDA is found to have multisegment high-grade atherosclerosis with a
95% proximal stenosis and diffuse 90% stenosis in the mid vessel.
RIGHT CORONARY: Small caliber nondominant vessel
VENTRICULOGRAPHY: Left ventriculography is performed in an AYALA projection. The digital single-plane left ventricular ejection fraction is visually estimated at 45% with posterior basal hypokinesis
HEMODYNAMIC ASSESSMENT OF THE LAD WITH A SilistixO OMNI WIRE: The origin of the LAD was cannulated with a 6 Fr XB 3.5 guide catheter. Intravenous heparin was administered and the ACT was followed during the procedure. Two hundred micrograms of
intracoronary nitroglycerin was given through the guide catheter. A [place] Omni wire was advanced to the guide catheter tip and normalized to guide catheter pressure. The Omni wire was then carefully manipulated across the stenosis in the mid LAD
and the tip of the wire was placed in the distal LAD. The IFR serially measured above the ischemic threshold at 0.92, 0.93, and 0.93 with a Pd/Pa at the guide catheter tip confirming no baseline drift measuring 1.0.
ANGIOPLASTY PROCEDURE DETAIL: At this point the decision was made to proceed with percutaneous revascularization of the extensive atherosclerotic disease in the distal circumflex extending into the mid PDA. The PDA becomes small and quite tortuous.
A 180 mg loading dose of ticagrelor was given at the beginning of the interventional procedure. Intravenous heparin was administered and the ACT proved difficult to advance above 300 seconds. A total of 16,000 units of heparin was administered
throughout the procedure. The ACT was carefully monitored throughout.
A BMW guidewire was advanced into the distal PDA and balloon predilation of the PDA back to the distal circumflex was performed using a 2.0 mm Euphora balloon. A 2.25 x 38 mm [place] stent was advanced to the distal mid PDA and was positioned with
angiographic and fluoroscopic guidance. The [place] stent was implanted at nominal pressures. A second 2.25 x 22 mm [place] stent was positioned in an overlapping fashion and implanted in the distal circumflex extending to the proximal PDA at nominal
pressures. Finally, a 3.0 x 30 mm [place] stent was positioned in an overlapping fashion from the mid circumflex to the distal circumflex. The distal stented segment was postdilated with a 2.25 mm noncompliant balloon at nominal pressures at the
distal edge of the stent and 24 hector throughout the mid and proximal PDA extending into the distal circumflex. The distal circumflex stent was postdilated at low pressures with a 3.5 x 15 mm noncompliant balloon between 10 to 14 hector. The mid to
distal portion of the circumflex stent was post dilated with a 3.5 mm NC balloon at 20 and as high as 25 hector in the proximal to midportion of the most proximal stent. Intravascular ultrasound was then performed. The distal circumflex and proximal
PDA stents were mildly undersized and were re-dilated with a 3.0 mm noncompliant balloon at 12 hector distally and 20-25 hector into the distal circumflex. The most proximal stent appeared reasonably well-approximated and appropriately sized following
post dilation with a 3.5 mm noncompliant balloon to 25 hector
SEDATION: 85 minutes of procedural sedation was utilized. An independent medical laboratory assistant was present to assist with and help manage the patient's level of consciousness and physiologic status
RADIATION SUMMARY: Fluoro Time (min): 18.7, Dose (mGy): 1315, DAP (Gy.cm2) : 94.6
CONCLUSIONS
1. Successful stenting of the mid to distal dominant circumflex into the mid PDA with overlapping 3.0 x 30 mm, 2.25 x 22 mm and 2.25 x 38 mm [place] stents. The distal stents were postdilated to high pressures with a 2.25 mm noncompliant balloon.
The distal LCx and proximal PDA were postdilated with a 3.0 mm noncompliant balloon to high pressures while the mid to distal circumflex stent was postdilated with a 3.5 mm noncompliant balloon proximally at 20 to 25 hector and distally at 14 to 16 hector
with a nice angiographic result
2. Patent stent in the proximal segment of OM1
3. Low normal LVEF estimated at 45%
RECOMMENDATIONS
1. Uninterrupted dual antiplatelet therapy for 1 year. The patient has been horribly compliant with medical therapy. He even stated that his compliance with aspirin has been marginal at times. I stressed the need to maintain dual antiplatelet
therapy. We will check the cost of ticagrelor. If prohibitively expensive may consider either prasugrel or clopidogrel.f
2. Diabetes is poorly controlled. Will consult diabetic nurse educator and work on better glycemic control
3. High intensity statin therapy
4. Begin RIKA/ARB given diabetes and continue carvedilol
Copy to: Dr. Long Sage
--- NOTE | 2024-09-08 11:23 | PN.DE.MGMTRT ---
Insulin Management
- -
09/08/2024: Diabetes Management Consult:
69 year old male with PMH: CAD, HTN, HLD, T2DM p/w chest pain. Pt well known to me from previous admission in 2022 of similar presentation. He presented with Chest Pain / ACS--> NSTEMI. He is s/p LHC and stent placement today.
Pt states he stopped taking all his diabetes medications a few weeks after he was discharged from the hospital in 2022. He also reports that he never got the [facility] glucose monitor he had planned to get and did not monitor his blood sugars after
discharge from the hospital like he had been instructed to do. He does not follow or adhere to a diabetic diet, and dose not exercise either. He has not seen his PCP in over a year. A1C on admission was 10.4% had been 8.5% in 02/2023. Cr 0.7, eGFR
>60.
Pt awake, alert, oriented, resting flat in bed post LHC and stenting, offers no complaints, able to discuss diabetes care plan.
Current diabetes regimen includes: Lantus 10 units @ HS and low corrective insulin.
He is noted for persistent Hyperglycemia. HS blood sugar was 191, FBG 195 V, 166 POC. 5/ premeal range 134 to 144.
Will increase Lantus to 15 units @ HS. Start AC NovoLog 5 units and Farxiga 10mg daily, 1st dose in AM. Cont low corrective insulin with meals.
He has been started on low chol diet, will modify to 1800 [address]anning. Emphasized importance of adherence to diabetes care, including intensive life style change and risk factor modification. Discussed OP DSME Classes and encouraged pt to call office and
enroll once discharged from the hospital. Will cont to follow.
Pt will be seen by the Diabetes RN Educator to provide Glucose monitor and insulin instructions.
Diabetes History
- -
Type of Diabetes: 2 requiring insulin
Pre-Admission Diabetes Regimen
09/08/24
08:20
Creatinine 0.9
Lab Results
Hemoglobin A1c 10.4 % (4.0-5.6) H 09/06/24 05:58
Insulin Pump Settings
IP Diabetes Regimen
09/07/24 09/07/24 09/07/24
11:40 16:52 21:38
Glucose
POC Glucose 244 H 186 H 181 H
09/08/24 09/08/24
06:06 08:20
Glucose 195 H
POC Glucose 166 H
Meal type: Breakfast
Amount consumed: 65%
Patient Education
--- NOTE | 2024-09-08 12:13 | CM ---
Pricing on Brilinta 90 mg BID through the patient's [employer] Prescription Plan [id number], is covered at $47. Patient is agreeable.
[2024-09-08] MEDS: COZAAR 50 MG PO (12:28)
[2024-09-08 13:05] LABS: ACT-LR - POC 314 Seconds (116-155)
[2024-09-08 13:05] LABS: ACT-LR - POC 192 Seconds (116-155)
[2024-09-08 13:05] LABS: ACT-LR - POC 256 Seconds (116-155)
[2024-09-08 13:05] LABS: ACT-LR - POC 261 Seconds (116-155)
[2024-09-08 13:05] LABS: ACT-LR - POC 287 Seconds (116-155)
[2024-09-08 13:05] LABS: ACT-LR - POC 327 Seconds (116-155)
[2024-09-08] MEDS: NOVOLOG FLEXPEN 5 UNITS SC (15:23)
--- NOTE | 2024-09-08 17:08 | PTCARENOTE ---
pt is sr on the monitor, hr in the 70s, vss. pt offers no complaints at this time. right radial site is cdi. right groin is tender to palpation, but dressing cdi. pt oob to br and tolerated well. pt educated on plan of care and pt verbalized
understanding of plan.
--- NOTE | 2024-09-08 17:19 | W.PN.HOSP.TC ---
Today's Communication/Plan
-
Assessment / Plan
Assessment / Plan
Physical Exam
General: Obese, no acute distress, appears comfortable at this time
HEENT: NormoCephalic, Moist mucous membranes and Atraumatic
Respiratory: Clear
Cardiac: S1/S2 and Regular Rhythm; No Murmur or Rub
GI: Soft, Non Tender, Non Distended and Normal Bowel Sounds; No Organomegaly
Musculoskeletal: No Clubbing, No Cyanosis, No edema
Skin: No Rash, right radial vascular access pressure dressing in place
Neuro: AO x 3 conversant coherent
Psych: Calm and cooperative
69M DM HTN HLD CAD stent 2022, hasn't followed with primary care in a while, here with chest pain troponin elevation concerning for ACS.
#chest pain/ACS/NSTEMI
#hxt of cardiac stents
- Status post PCI with 3 stents to left circumflex today 09/08
- Continue DAPT for at least 12 months
- High intensity statin therapy
- Blood pressure and blood glucose control
Essential hypertension
-hypertensive on arrival
-BP regimen adjusted as per Cardio
-initial treated with metoprolol, since switched to Coreg
-Amlodipine started, will switch to losartan
#type 2 DM with hyperglycemia
-A1c 10.4
-sliding scale
-CHO diet
-Lantus 10units at hs, increase to 15 units at night, added 5 units of short acting insulin with meals
-medium dose sliding scale
-monitor and titrate insulin regimen as necessary
- Appreciate diabetic COMFORT ADVISOR input
#Hyperlipidemia
-statin continued
#DVT prophylaxis
- Lovenox
#CODE status
-full code
I spent a total of 45 minutes
Anticipated Discharge: 24 - 48 hours
Subjective/Interval History
-
Date of Service: September 08, 2024
Patient was seen and examined at bedside this morning. Plan for left heart catheterization earlier this morning with PCI and tolerated procedure well.
Objective Data
-
Labs:
Laboratory Results
09/08/24
08:20
WBC 6.7
Hgb 15.4
Hct 45.7
Plt Count 290
APTT 86.8 H
Sodium 138
Potassium 4.2
Chloride 104
Carbon Dioxide 24
BUN 12
Creatinine 0.9
Glucose 195 H
Calcium 9.2
Vital Signs:
Vital Signs
Temp Pulse Resp BP Pulse Ox
98.3 F 76 20 150/88 98
09/08/24 15:29 09/08/24 12:28 09/08/24 15:29 09/08/24 12:28 09/08/24 15:29
I&O
09/07/24 09/08/24 09/09/24
06:59 06:59 06:59
Intake Total 2571 / 2571 600 / 1080 960 / 960
Balance 2571 / 2571 600 / 1080 960 / 960
Review of Systems
-
History Source: Patient
All other systems: Reviewed and negative
Physical Exam
-
General: No Apparent Distress
[2024-09-08] MEDS: LIPITOR 80 MG PO (17:23)
[2024-09-08 19:44] LABS: Glucose - Point of Care 131 mg/dl (70-99)
[2024-09-08] MEDS: NOVOLOG FLEXPEN SC (19:45)
[2024-09-08] MEDS: NOVOLOG FLEXPEN-MODERATE RESISTANCE SC (19:45)
[2024-09-08] MEDS: BRILINTA 90 MG PO (19:46)
--- NOTE | 2024-09-08 21:17 | PTCARENOTE ---
Rec'd at change of shift. Pt AAO*3, VSS, SR on TELE monitor, and R groin / R radial site CDI. Pt denies any pain or discomfort. Pt resting with call meyers in reach and agreed to activity restrictions. See MAR and flowchart for full pt care and
assessment.
[2024-09-08] MEDS: LANTUS 0.15 UNITS SC (21:55)
[2024-09-08 21:56] LABS: Glucose - Point of Care 133 mg/dl (70-99)
[2024-09-09 02:32] VITALS: BP 116/67
[2024-09-09 02:33] VITALS: BP 116/67
[2024-09-09 02:48] VITALS: BMI 35.2
[2024-09-09 03:42] LABS: Hematocrit 46.1 % (39.0-52.0); Hemoglobin 15.3 g/dL (13.0-18.0); Mean Corp Hgb Conc. 33.2 g/dL (33.0-37.0); Mean Corpuscular Hgb 28.9 pg (27.0-31.0); Mean Platelet Volume 10.2 fL (7.4-10.4); Platelet Count 287 10^3/uL (130-400); Red Cell Dist. Width 12.6 % (11.5-14.5); White Blood Cell Count 9.4 10^3/uL (4.8-10.8)
[2024-09-09 03:58] LABS: Blood Urea Nitrogen 14 mg/dl (9-20); Calcium 9.3 mg/dl (8.4-10.2); Carbon Dioxide 22 mmol/L (22-30); Chloride 105 mmol/L (98-107); Estimated Creatinine Clearance 100 ml/min; Glucose 169 mg/dl (70-99); Potassium 4.2 mmol/L (3.5-5.1); Sodium 137 mmol/L (135-145); eGFR > 60.00
[2024-09-09 07:05] VITALS: BP 144/73
[2024-09-09 07:10] LABS: Glucose - Point of Care 173 mg/dl (70-99)
--- NOTE | 2024-09-09 07:41 | W.PN.CARDCBS ---
Addendum entered and electronically signed by Mili Cruz MD 09/09/24 10:16:
I saw and examined the patient.
The [employer]'s note was reviewed and I agree with the note.
Comment: Overall patient is doing well this morning. He has been out of bed ambulating within his room without any difficulty. Specifically denies any chest discomfort or shortness of breath. No groin discomfort with walking however at times when
he sitting he does have some groin tenderness.
Vital signs and lab work reviewed. On exam patient is well-appearing, morbidly obese, in no acute distress, awake and alert, oriented x 3, no carotid bruits, no JVD, normal carotid upstrokes, regular rate, normal S1 and S2, no murmurs, rubs or
gallops, lungs are clear to auscultation bilaterally, abdomen is obese but otherwise soft, nontender, nondistended with active bowel sounds, warm extremities without significant edema. Right radial access site with dressing in place which is clean,
dry and intact without evidence of hematoma or bruit. Right common femoral arterial access site with dressing in place which is clean, dry and intact. Patient is mildly tender however with continued manual pressure he does not complain of ongoing
tenderness. There is no evidence of hematoma or bruit.
Recommendations:
1. In the setting of an NSTEMI status post 3 overlapping stents in the left circumflex 2 LPDA (3.0 x 30 mm, 2.25 x 22 mm and 2.25 x 38 mm Gorge stents that were implanted and postdilated distally with a 2.25 x 20 mm Euphora balloon at 12 hector on the
distal edge of the stents and 24 hector throughout the PDA back into the distal circumflex)
2. Mid LAD was IFR negative. continue uninterrupted dual antiplatelet therapy with daily baby aspirin and Brilinta 90 mg twice daily along with high intensity statin and beta-shira as tolerated. Case management look into the cost of the Brilinta
and patient is agreeable to the cost and its affordability. Reemphasized importance of medication compliance.
3. Continue carvedilol and Cozaar as well as Farxiga in the setting of known diabetes.
4. Emphasized the importance of pursuing cardiac rehab.
5. Encouraged following a high-fiber, low sugar/carb and low-sodium Mediterranean type diet with overall goal for weight loss with increasing physical activity.
6. Outpatient cardiology follow-up will be set up.
Discussed with nursing at bedside. We will also ambulate the patient in the halls to make sure that the right groin remained stable with no need for imaging prior to discharge. Otherwise stable for discharge home if no unexpected issues.
Mili Cruz MD, FAC, [facility]
Original Note:
Today's Communication / Plan
-
s/p circ to PDA stents
continue asa, brilinta, lipitor, coreg, cozaar, farxiga
cardiac rehab
will arrange OP cardiac follow up
Impression / Plan
-
Impression:
Chest Pain
NSTEMI s/p circ to PDA overlapping PCI x3 09/08/24
CAD
History of OM1 stent 2022
ASCVD
Benign Hypertension
DM-II, Uncontrolled
Medication Non-Compliance
Obesity
ECHO 09/08/24: EF 50 to 55%, stage I diastolic dysfunction, no significant valve abnormalities
Recommendations:
-Patient presented with chest pain and ruled in for NSTEMI with peak trop 1.54
-s/p cath 09/08/24 with 3 overlapping circ to PDA stents
-R wrist and groin sites soft, NTTP, dressing c/d/i
-continue asa, brilinta, cost affordable to patient
-in SR with several brief episodes of vent bigeminy and 1 brief episode of atach. K/mag stable as of 09/08
-echo with EF low normal ~50%. continue coreg, cozaar
-continue lipitor
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 tor started this admission
-encouraged compliance with medications and follow up moving forward
-cardiac rehab
-will arrange OP cardiac follow up
-likely ok for DC later today
Progress Note - [employer] Operator
Subjective
Date of Service: September 09, 2024
no issues overnight.
Objective
Labs:
09/09/24 02:39
09/09/24 02:39
Labs
Hgb 15.3 g/dL (13.0-18.0) 09/09/24 02:39
Hct 46.1 % (39.0-52.0) 09/09/24 02:39
Plt Count 287 10^3/uL (130-400) 09/09/24 02:39
PT 13.4 Sec (11.4-14.6) 09/07/24 18:00
INR 0.99 09/07/24 18:00
APTT 86.8 Sec (23.4-35.0) H 09/08/24 08:20
Sodium 137 mmol/L (135-145) 09/09/24 02:39
Potassium 4.2 mmol/L (3.5-5.1) 09/09/24 02:39
BUN 14 mg/dl (9-20) 09/09/24 02:39
Creatinine 0.9 mg/dL (0.7-1.3) 09/09/24 02:39
Glucose 169 mg/dl (70-99) H 09/09/24 02:39
Troponins
09/06/24 09/07/24 09/08/24
13:15 10:10 08:20
Troponin I 1.540 H* 0.653 H* 0.280 H*
Vital Signs and I&O:
Vital Signs
Temp Pulse Resp BP Pulse Ox
98.4 F 76 18 116/67 97
09/09/24 07:07 09/09/24 02:33 09/09/24 07:07 09/09/24 02:33 09/09/24 07:07
Vital Signs
Temp Pulse Resp BP Pulse Ox
98.4 F 76 18 116/67 97
09/09/24 07:07 09/09/24 02:33 09/09/24 07:07 09/09/24 02:33 09/09/24 07:07
Intake & Output
09/06/24 09/07/24 09/08/24 09/09/24
07:59 07:59 07:59 07:59
Intake Total 70 / 2501 / 2501 1080 / 1080 960 / 960
Balance 70 / 2501 / 2501 1080 / 1080 960 / 960
Physical Exam
Physical Exam
GEN: No distress, awake, alert, oriented x3. obese
HEENT: supple, anicteric, mmm, eomi
LUNGS: CTA B/L, no wheezes/rales
CV: Reg, S1/S2, no murmur
ABD: soft, BS+, NT/ND
EXT: No cyanosis, clubbing, edema
NEURO: Gross non-focal
SKIN: Warm, pink, dry. No rash. R wrist and groin sites soft, dressing c/d/i
[2024-09-09] MEDS: BRILINTA 90 MG PO (08:00)
[2024-09-09] MEDS: FARXIGA 10 MG PO (08:00)
[2024-09-09] MEDS: COREG 6.25 MG PO (08:00)
[2024-09-09] MEDS: COZAAR 50 MG PO (08:00)
[2024-09-09] MEDS: LOW STRENGTH ASPIRIN 81 MG PO (08:00)
[2024-09-09] MEDS: NOVOLOG FLEXPEN 5 UNITS SC ×2 (08:06→13:44)
[2024-09-09] MEDS: NOVOLOG FLEXPEN-MODERATE RESISTANCE 1 UNITS SC ×2 (08:06→13:49)
--- NOTE | 2024-09-09 10:01 | PN.DE.MGMTRT ---
Insulin Management
- -
09/09/2024 Diabetes Management Consult Follow Up
Patient admitted with chest pain/ACS--> NSTEMI. PMH: CAD, HTN, HLD, T2DM p/w chest pain. Pt well known to me from previous admission in 2022 of similar presentation. He is s/p LHC and stent placement today. Pt states he stopped taking all his
diabetes medications a few weeks after he was discharged from the hospital in 2022. He also reports that he never got the [facility] glucose monitor he had planned to get and did not monitor his blood sugars after discharge from the hospital like he had
been instructed to do. He does not follow or adhere to a diabetic diet, and dose not exercise either. He has not seen his PCP in over a year. A1C on admission was 10.4% had been 8.5% in 02/2023. Cr 0.7, eGFR >60.
Pt awake, alert, oriented, offers no complaints, able to discuss diabetes care plan.
09/08 Only 2 glucose results fasting 195 and HS 133.
Received Lantus 15 units @ HS last evening, fasting glucose 173. Will increase lantus to 18 units tonight. AC NovoLog 5 units and Farxiga 10mg daily to start today. Cont low corrective insulin with meals.
Emphasized importance of adherence to diabetes care, including intensive life style change and risk factor modification. Discussed OP DSME Classes and encouraged pt to call office and enroll once discharged from the hospital. Will cont to follow.
Pt seen by the Diabetes RN Educator to provide Glucose monitor and insulin instructions.
Diabetes History
- -
Type of Diabetes: 2 requiring insulin
Pre-Admission Diabetes Regimen
09/09/24
02:39
Creatinine 0.9
Lab Results
Hemoglobin A1c 10.4 % (4.0-5.6) H 09/06/24 05:58
Insulin Pump Settings
IP Diabetes Regimen
09/08/24 09/08/24 09/09/24
19:43 21:54 02:39
Glucose 169 H
POC Glucose 131 H 133 H
09/09/24
07:09
Glucose
POC Glucose 173 H
Meal type: Breakfast
Meal type: Dinner
Meal type: Dinner
Amount consumed: 100%
Amount consumed: 100%
Amount consumed: 100%
Patient Education
--- NOTE | 2024-09-09 11:11 | CM ---
Pricing on Farxiga through [employer] is a Tier 4 medication at $225 for a 30 day. It will need a prior authorization called into [id number]
Jardiance 10mg is a Tier 3 medication at $47 for a 30 day supply. It will need a prior authorization called into [id number]. I [address] place a free 30 day coupon in the red discharge folder
[2024-09-09 11:32] VITALS: BP 124/70
--- NOTE | 2024-09-09 11:41 | W.DCSUMMARY ---
Discharge Summary
Discharge Data
Date of Admission: 09/07/24
Date of Discharge: 09/09/24
-
Pending Results: No
Hospital Course
Mr. May is a 69-year-old male with a medical history of CAD (PCI 2022), hypertension, and gnu-jbabnuz-cggfzfvfj diabetes mellitus (on Jardiance and metformin) who presented with chest pain with concern for ACS. He was found to have
significantly elevated troponins and was started on anticoagulation with IV heparin drip.
He was brought to the Customer Service Assistant on 09/08 and received PCI with 3 overlapping stents in the left circumflex artery. He tolerated the procedure well. He will be continued on DAPT with aspirin and Brilinta for at least 12 months. He will be continued
on high intensity statin therapy indefinitely. He will need to follow-up in the outpatient setting for cardiac rehab.
His blood pressure was initially uncontrolled. He was started on amlodipine at time of admission and later switched to losartan which he will continue after discharge. He had been on beta-blockade with metoprolol tartrate at home which was
switched to carvedilol during this admission. His blood pressure is currently well-controlled. He will need to follow-up with cardiology in the outpatient office for ongoing management.
His hemoglobin A1c was 10.4%. He has been started on a regimen of long and short acting insulin with adjustments made as needed. He will be continued on dapagliflozin. His blood glucose has been much better controlled on this current regimen. He
has received diabetic education to help with maintaining tighter blood glucose control. He will need close follow-up in the outpatient setting with an waste cotton cleaner and with his PCP for ongoing management of his diabetic regimen.
At time of hospital discharge he was medically stable. He will need to follow-up with his primary care physician, cardiology, and endocrinology.
General: No Apparent Distress, Comfortable and Conversant
HEENT: NormoCephalic, Moist mucous membranes, Atraumatic
Respiratory: Clear and Non Labored Respirations
Cardiac: S1/S2 and Regular Rhythm; No Rub or Gallop
GI: Soft, Non Tender, Non Distended and Normal Bowel Sounds
Musculoskeletal: No Edema, no deformity, right radial and right femoral vascular access sites clean dry intact
: NO Meehan
Neuro: Awake, Alert, Nonfocal/grossly intact
Psych: Calm and Intact Judgment/Insight
Discharge Plan
-
Patient Disposition: Home (Routine Discharge)
Discharge Diagnosis/Procedures: NSTEMI, s/p angioplasty and stent x3 to Left Circumflex artery
Diet: Low Cholesterol and Diabetic, Carb Controlled
Activity: No strenuous activity
Additional Activity: For 1 week after discharge
Other Services: Cardiac Rehab
Activity Restrictions/Additional Instructions:
Mr. May is a 69-year-old male with a medical history of CAD (PCI 2022), hypertension, and wfh-lpnmfwh-hosqdmplc diabetes mellitus (on Jardiance and metformin) who presented with chest pain with concern for ACS. He was found to have
significantly elevated troponins and was started on anticoagulation with IV heparin drip.
He was brought to the Customer Service Assistant on 09/08 and received PCI with 3 overlapping stents in the left circumflex artery. He tolerated the procedure well. He will be continued on DAPT with aspirin and Brilinta for at least 12 months. He will be continued
on high intensity statin therapy indefinitely. He will need to follow-up in the outpatient setting for cardiac rehab.
His blood pressure was initially uncontrolled. He was started on amlodipine at time of admission and later switched to losartan which he will continue after discharge. He had been on beta-blockade with metoprolol tartrate at home which was
switched to carvedilol during this admission. His blood pressure is currently well-controlled. He will need to follow-up with cardiology in the outpatient office for ongoing management.
His hemoglobin A1c was 10.4%. He has been started on a regimen of long and short acting insulin with adjustments made as needed. He will be continued on dapagliflozin. His blood glucose has been much better controlled on this current regimen. He
has received diabetic education to help with maintaining tighter blood glucose control. He will need close follow-up in the outpatient setting with an waste cotton cleaner and with his PCP for ongoing management of his diabetic regimen.
At time of hospital discharge he was medically stable. He will need to follow-up with his primary care physician, cardiology, and endocrinology.
Stand Alone Forms: DC Instructions- Cath/EP Lab
Referrals:
[facility] [Outside] - 10/14/24 8:00 am
(Cardiac Rehab Orientation appointment and� First Exercise appointment is on 10/14/24 at 8am
The Cardiac Rehab gym is located on the first floor of the [facility].)
NONE,* [Family Provider] -
Cassidy Cage CRNP [Specified Professional Personl] - 09/22/24 11:00 am (Cardiology followup appointment)
Prescriptions:
New
ticagrelor [Brilinta] 90 mg Tablet
90 mg PO BID Qty: 60 11RF
Jardiance 10 mg tablet
10 mg PO DAILY Qty: 90 3RF
losartan 50 mg Tablet
50 mg PO DAILY 30 Days Qty: 30 0RF
carvedilol 6.25 mg Tablet
6.25 mg PO BID 30 Days Qty: 60 0RF
atorvastatin 40 mg Tablet
80 mg PO QPM 30 Days Qty: 60 0RF
insulin aspart U-100 100 unit/mL (3 mL) Insulin Pen
5 unit SC AC 30 Days Qty: 4.5 0RF
insulin glargine 100 unit/mL (3 mL) insulin pen
18 unit SC QPM Qty: 15 0RF
Continued
aspirin 81 mg Tablet,Chewable
81 mg PO DAILY Qty: 0 0RF
Discharge Orders:
Discharge Patient (As Directed); Ordered 09/09/24
Ordered By: Dat Lawrence
Care Plan Goals
Care Plan Goals:
Problem: Readiness for enhanced knowledge related to diagnosis and treatment plan
Goal: Understand your diagnosis and treatment plan needs, including medications if applicable.
Instructions: Know your diagnosis, underlying causes and treatment plan options, including medications if applicable. Consult with your health care team to learn about your diagnosis and treatment plan, including medications if applicable.
Discharge Date and Time
Print Language: CITIZEN OF [place]
--- NOTE | 2024-09-09 11:55 | PTCARENOTE ---
09/09/2024 DIABETES EDUCATION
I met with Ian to review diabetes management. He admits to not refilling DM medications in past.
I educated on physiology of T2D, organ damage, managing with medications, monitoring BG, nutrition, activity, sleep and managing stress. I reinforced signs of hyperglycemia, hypoglycemia and hypoglycemia protocol; BS parameters and recommended HbA1c
goals, glucometer and CGM instructions, glucose tracker, medic alert bracelet and outpatient DSME program. Written material provided.
Reviewed mechanism of action for Farxiga, CM came into room and informed patient of 30 day coupon. I educated Ian to call naval police coxswain to inquire about prescription assistance program availability and insurance company to discuss if he is close
to meeting his $2,000 MOOP for medication costs.
I educated and reviewed using Contour Next glucometer, member acknowledged understanding with a self demonstration of checking BS. Provided him with a Contour Next sample kit and requested prescription for lancets and test strips sent to his
pharmacy.
I educated and demonstrated on insulin injection technique, timing, and storage. Discussed long and short acting insulin; onset/peak/duration, he states his nurse has assisted him with current insulin injections. Discussed normal target glucose
ranges and a monitoring schedule 15 minutes before each meal when prescribed Novolog, and preprandial AM and/or bedtime as recommended by MD.
Encouraged patient to follow up with his PCP for post d/c appointment and to monitor medication and blood glucose levels. Provided list of endocrinologists if desired, to contact insurance company to verify in network status. Requested
prescription sent to pharmacy for test strips and lancets for back up SMBG. Patient verbalized understanding.
[2024-09-09] MEDS: PREVNAR 20 0.5 ML IM (13:31)
[2024-09-09 13:50] LABS: Glucose - Point of Care 166 mg/dl (70-99)
== END 2024-09-09 15:04 | disposition home or self-care (01) | DRG 322 ==
LOC: IVU 07:55
PROVIDERS: Internal Medicine; Internal Medicine Cardiovascular Disease; Internal Medicine Interventional Cardiology; Nurse Practitioner; Registered Nurse; Student in an Organized Health Care Education/Training Program; ADMITTING PHYSICIAN Hospitalist; ATTENDING PHYSICIAN Internal Medicine; CONSULT PHYSICIAN Internal Medicine Cardiovascular Disease; EMERGENCY PHYSICIAN Emergency Medicine
PROC: B241ZZ3 Ultrasonography of Multiple Coronary Arteries, Intravascular (ICD-10-PCS; 2024-09-08)
PROC: B2151ZZ Fluoroscopy of Left Heart using Low Osmolar Contrast (ICD-10-PCS; 2024-09-08)
PROC: 4A023N7 Measurement of Cardiac Sampling and Pressure, Left Heart, Percutaneous Approach (ICD-10-PCS; 2024-09-08)
PROC: B2111ZZ Fluoroscopy of Multiple Coronary Arteries using Low Osmolar Contrast (ICD-10-PCS; 2024-09-08)
PROC: 027035Z Dilation of Coronary Artery, One Artery with Two Drug-eluting Intraluminal Devices, Percutaneous Approach (ICD-10-PCS; 2024-09-08)
PROC: 4A033BC Measurement of Arterial Pressure, Coronary, Percutaneous Approach (ICD-10-PCS; 2024-09-08)
DX: I21.4 Non-ST elevation (NSTEMI) myocardial infarction (principal); E78.2 Mixed hyperlipidemia; I10 Essential (primary) hypertension; I25.10 Atherosclerotic heart disease of native coronary artery without angina pectoris; E11.65 Type 2 diabetes mellitus with hyperglycemia; Z95.5 Presence of coronary angioplasty implant and graft; Z79.82 Long term (current) use of aspirin; Z79.84 Long term (current) use of oral hypoglycemic drugs; Z87.891 Personal history of nicotine dependence; Z90.49 Acquired absence of other specified parts of digestive tract; Z91.148 Patient's other noncompliance with medication regimen for other reason
CPT/HCPCS: 80048; 80053; 80061; 82962; 83036; 83735; 84100; 84484; 85025; 85027; 85347; 85379; 85610; 85730; 90677; 92978; 93005; 93306; 93458; 93799; 99285; C1725; C1753; C1760; C1769; C1874; C1887; C1894; C9600; G0009

== ENCOUNTER 2024-11-03 08:51 | Outpatient (RCR) | payer OTHER, SELFPAY ==
[2024-10-14 09:26] LABS: Glucose - Point of Care 158 mg/dl (70-99)
[2024-10-14 10:02] LABS: Glucose - Point of Care 142 mg/dl (70-99)
[2024-10-17 06:36] LABS: Glucose - Point of Care 143 mg/dl (70-99)
[2024-10-17 07:18] LABS: Glucose - Point of Care 149 mg/dl (70-99)
[2024-10-20 06:35] LABS: Glucose - Point of Care 128 mg/dl (70-99)
[2024-10-20 07:23] LABS: Glucose - Point of Care 161 mg/dl (70-99)
[2024-10-22 06:34] LABS: Glucose - Point of Care 160 mg/dl (70-99)
[2024-10-22 07:26] LABS: Glucose - Point of Care 163 mg/dl (70-99)
[2024-10-24 06:30] LABS: Glucose - Point of Care 154 mg/dl (70-99)
[2024-10-24 07:19] LABS: Glucose - Point of Care 157 mg/dl (70-99)
[2024-10-27 06:37] LABS: Glucose - Point of Care 154 mg/dl (70-99)
[2024-10-27 07:29] LABS: Glucose - Point of Care 172 mg/dl (70-99)
== END 2024-11-03 23:59 | disposition home or self-care (01) ==
LOC: CRHB 08:51
PROVIDERS: ATTENDING PHYSICIAN Internal Medicine Cardiovascular Disease
DX: I25.10 Atherosclerotic heart disease of native coronary artery without angina pectoris (principal); Z95.5 Presence of coronary angioplasty implant and graft; I25.2 Old myocardial infarction
CPT/HCPCS: 82962; 93797; 93798; G0422

== ENCOUNTER 2024-12-03 08:40 | Outpatient (RCR) | payer OTHER, SELFPAY | END 2024-12-03 23:59 | disposition home or self-care (01) | LOC: CRHB 08:40 | PROVIDERS: ATTENDING PHYSICIAN Internal Medicine Cardiovascular Disease | DX: I25.10 Atherosclerotic heart disease of native coronary artery without angina pectoris (principal); I25.2 Old myocardial infarction; Z95.5 Presence of coronary angioplasty implant and graft | CPT/HCPCS: 93798 ==

== ENCOUNTER 2025-01-02 08:49 | Outpatient (RCR) | payer OTHER, SELFPAY | END 2025-01-02 23:59 | disposition home or self-care (01) | LOC: CRHB 08:49 | PROVIDERS: ATTENDING PHYSICIAN Internal Medicine Cardiovascular Disease | DX: I25.10 Atherosclerotic heart disease of native coronary artery without angina pectoris (principal); Z95.5 Presence of coronary angioplasty implant and graft; I25.2 Old myocardial infarction | CPT/HCPCS: 93798; G0422 ==

== ENCOUNTER 2025-01-15 07:00 | Outpatient (RCR) | payer OTHER, SELFPAY | END 2025-01-15 14:16 | disposition home or self-care (01) | LOC: CRHB 07:00 | PROVIDERS: ATTENDING PHYSICIAN Internal Medicine Cardiovascular Disease | DX: I25.10 Atherosclerotic heart disease of native coronary artery without angina pectoris (principal); Z95.5 Presence of coronary angioplasty implant and graft; I25.2 Old myocardial infarction | CPT/HCPCS: 93798; G0422 ==

== ENCOUNTER → 2025-04-21 07:08 | Outpatient (REF) | payer OTHER, SELFPAY | LOC: HWRCS 07:08 | PROVIDERS: ATTENDING PHYSICIAN Internal Medicine Cardiovascular Disease | DX: I25.5 Ischemic cardiomyopathy (principal) | CPT/HCPCS: 93306 ==